=== PATIENT | male | born 1930 | race Caucasian/White ===

== ENCOUNTER 2020-08-05 00:26 | Inpatient (IN) | payer MEDICARE, OTHER ==
[~2020-08-05] VITALS: Ht 182.9 cm; Wt 77.1 kg
[2020-08-05 01:14] LABS: CREATININE 0.8 mg/dL (0.6-1.3); POTASSIUM 4.2 mmol/L (3.5-5.1)
[2020-08-05 01:18] LABS: EOSINOPHILS # (AUTO) 0.1 K/uL (0.0-0.7); EOSINOPHILS % (AUTO) 3.1 % (0.0-7.0); HEMOGLOBIN 14.4 g/dL (12.5-16.3); LYMPHOCYTES # (AUTO) 1.7 K/uL (20.0-40.0); LYMPHOCYTES % (AUTO) 36.5 % (20.5-51.5); MEAN CORPUSCULAR HEMOGLOBIN 31.5 uug (23.8-33.4); MEAN CORPUSCULAR HGB CONC 33 g/dL (32.5-36.3); MEAN CORPUSCULAR VOLUME 94.4 fL (73.0-96.2); MONOCYTES # (AUTO) 0.5 K/uL (2.0-10.0); MONOCYTES % (AUTO) 11.4 % (0.0-11.0); NEUTROPHILS # (AUTO) 2.2 K/uL (1.8-8.9); PLATELET COUNT (AUTO) 174 K/uL (152-348); RED BLOOD CELL COUNT(AUTO) 4.56 MIL/uL (4.06-5.63); WHITE BLOOD COUNT (AUTO) 4.6 K/uL (3.6-10.2)
[2020-08-05 01:20] LABS: BILIRUBIN,DIRECT 0.2 mg/dL (0.0-0.2); BILIRUBIN,TOTAL 0.9 mg/dL (0.2-1.0); TOTAL PROTEIN, SERUM 6.6 g/dL (6.4-8.2)
[2020-08-05] MEDS ORDERED: SWABABLE VALVE TRANSFER SET EA MC ONE (01:53)
[2020-08-05] MEDS ORDERED: IV NORMAL SALINE 250 ML IV ONE (01:53)
[2020-08-05] MEDS ORDERED: IOHEXOL 300MG/ML 100 ML INFUS..BTL ONE (01:53)
[2020-08-05 01:56] LABS: *BILIRUBIN,URIN NEGATIVE (NEGATIVE); *BLOOD, URINE NEGATIVE (NEGATIVE); *CLARITY,URINE CLEAR (CLEAR); *COLOR,URINE YELLOW (YELLOW); *KETONES,URINE NEGATIVE (NEGATIVE); LEUKOCYTE ESTERASE ,URINE NEGATIVE (NEGATIVE); NITRITE, URINE NEGATIVE (NEGATIVE); PH,URINE 6.5 (5.0-8.0); UGLUCOSE NEGATIVE (NEGATIVE)
--- NOTE | 2020-08-05 02:00 | NUR ---
CALLED [facility] , SPOKE TO BO WHO WORKS AT THE FACILITY. INFORMED HER THAT NO MEDICAL HISTORY, H/P AND MEDICATION LIST WAS PROVIDED. BO STATES SHE WOULD FAX INFORMATION. WAITING ON INFORMATION TO BE FAXED.
--- NOTE | 2020-08-05 03:00 | NUR ---
NO FAX RECIEVED FROM [facility]. CALLED BACK BO, BUT UNABLE TO GET A HOLD OF ANY STAFF MEMBER AT THIS TIME TO SPEAK TO.
[2020-08-05] MEDS ORDERED: HYDROMORPHONE 1 MG/1 ML DISP.SYRIN ONE (03:27)
[2020-08-05] MEDS ORDERED: ONDANSETRON 4 MG/2 ML VIAL ONE (03:28)
[2020-08-05] MEDS ORDERED: ONDANSETRON 4 MG/2 ML VIAL IV ONE (03:30)
[2020-08-05] MEDS ORDERED: HYDROMORPHONE 1 MG/1 ML DISP.SYRIN IV ONE (03:30)
--- NOTE | 2020-08-05 03:40 | NUR ---
horacio swab collected and handed to Milagro in lab.
--- NOTE | 2020-08-05 03:59 | NUR ---
Edmar from US at bedside.
--- NOTE | 2020-08-05 04:23 | NUR ---
Jeff sommer, Sanjeev Torres DNP sound controller.
--- NOTE | 2020-08-05 04:26 | NUR ---
Pt. admitted to m/s , under care of Dr. Sanjeev Torres Belongs List completed. covid pending.
--- NOTE | 2020-08-05 06:09 | NUR ---
Report given to MARLYN Garcia.
[2020-08-05] MEDS ORDERED: FURO20TA4 PO (06:43)
[2020-08-05] MEDS ORDERED: AMLO5TAB9 PO (06:43)
[2020-08-05] MEDS ORDERED: DOCU100C36 PO (06:43)
[2020-08-05] MEDS ORDERED: OMEP20TA5 PO (06:43)
[2020-08-05] MEDS ORDERED: POTA8CAP20 PO (06:43)
[2020-08-05] MEDS ORDERED: TAMS-3 PO (06:43)
[2020-08-05] MEDS ORDERED: DONE10TA44 PO (06:43)
[2020-08-05] MEDS ORDERED: METO100T14 PO (06:43)
[2020-08-05] MEDS ORDERED: SERT25TA PO (06:43)
[2020-08-05] MEDS ORDERED: PRAV20TA4 PO (06:43)
[2020-08-05] MEDS ORDERED: ASPI-869 PO (06:43)
--- NOTE | 2020-08-05 06:45 | NUR ---
Pt arrived via gurney from the ED. No s/s of distress noted. Pt on 2L NC, denies SOB and pain. Safety measures in place, bed alarm on. Will endorse to oncoming shift
[2020-08-05 06:51] VITALS: BP 152/61
--- NOTE | 2020-08-05 08:00 | NUR ---
Awake, alert, oriented to self, able to appropriately verbalized needs. Blind both eyes, hard of hearing. Reoriented.
[2020-08-05 08:03] VITALS: BP 148/61
[2020-08-05] MEDS ORDERED: ONDANSETRON 4 MG/2 ML VIAL IV PRN (08:15)
[2020-08-05] MEDS ORDERED: Z GUARD REMEDY PASTE 57 GM TUBE TOP PRN (08:15)
[2020-08-05] MEDS ORDERED: MORPHINE SULFATE 2 MG/1 ML DISP.SYRIN IV PRN (08:15)
[2020-08-05] MEDS: IV NS 1000 ML 1,000 ML IV PRN ×2 (09:12→20:28)
[2020-08-05] MEDS: ENOXAPARIN SODIUM 40 MG/0.4 ML DISP.SYRIN SQ SCH (09:13)
--- NOTE | 2020-08-05 09:15 | NUR ---
IVF started as ordered.
[2020-08-05 11:46] VITALS: BP 135/60
--- NOTE | 2020-08-05 13:00 | NUR ---
Patient pulled out IV/Saline lock; Reinserted to LFA G20. Reoriented. Bed alarm on
[2020-08-05 15:35] VITALS: BP 132/60
--- NOTE | 2020-08-05 18:30 | NUR ---
Covid PCR negative, Transferred to room 308. Diet advanced to soft, tolerated. Free from fall or injury. Bed alarm on
--- NOTE | 2020-08-05 19:30 | NUR ---
RECEIVED PT AWAKE, ALERT AND ORIENTEDX2. PT IN NO ACUTE DISTRESS. IV INTACT. SAFETY AND COMFORT PROVIDED. WILL CONTINUE TO MONITOR.
[2020-08-05 20:08] VITALS: BP 134/60
[2020-08-05] MEDS: ATORVASTATIN 40 MG TABLET PO SCH (20:25)
[2020-08-05] MEDS: ACETAMINOPHEN 325 MG TABLET PO PRN (20:25)
[2020-08-05] MEDS: TAMSULOSIN HCL 0.4 MG CAP.SR.24H PO SCH (20:26)
[2020-08-05] MEDS: METOPROLOL TARTRATE 50 MG TABLET PO SCH (20:26)
--- NOTE | 2020-08-06 01:31 | NUR ---
SHAI ( LAB) CALLED TO NOTIFY THAT PT COVID PCR RESULT IS NEGATIVE.
--- NOTE | 2020-08-06 01:46 | NUR ---
PT GIVEN MORPHINE AT 0115H FOR 8/10 PAIN SCALE ON RIGHT LOWER ABDOMINAL PAIN. PT RIGHT NOW STATED HIS PAIN MUCH BETTER. PT TOLERATED IT WELL. PT IN NO ACUTE DISTRESS. SAFETY PROVIDED. WILL CONTINUE TO MONITOR.
[2020-08-06 04:08] VITALS: BP 152/65
[2020-08-06] MEDS: PANTOPRAZOLE SODIUM 40 MG TABLET.DR PO SCH (06:02)
[2020-08-06 06:36] LABS: BASOPHILS % (AUTO) 0.5 % (0.0-2.0); EOSINOPHILS # (AUTO) 0.2 K/uL (0.0-0.7); EOSINOPHILS % (AUTO) 4.4 % (0.0-7.0); HEMATOCRIT 40.5 % (36.7-47.1); HEMOGLOBIN 13.5 g/dL (12.5-16.3); LYMPHOCYTES # (AUTO) 1.5 K/uL (20.0-40.0); LYMPHOCYTES % (AUTO) 32.9 % (20.5-51.5); MEAN CORPUSCULAR HEMOGLOBIN 31.4 uug (23.8-33.4); MEAN CORPUSCULAR HGB CONC 33 g/dL (32.5-36.3); MEAN CORPUSCULAR VOLUME 94.5 fL (73.0-96.2); MONOCYTES # (AUTO) 0.5 K/uL (2.0-10.0); MONOCYTES % (AUTO) 11.9 % (0.0-11.0); NEUTROPHILS # (AUTO) 2.3 K/uL (1.8-8.9); NEUTROPHILS % (AUTO) 50.3 % (38.5-71.5); PLATELET COUNT (AUTO) 159 K/uL (152-348); RED BLOOD CELL COUNT(AUTO) 4.28 MIL/uL (4.06-5.63); WHITE BLOOD COUNT (AUTO) 4.5 K/uL (3.6-10.2)
[2020-08-06 06:38] LABS: BILIRUBIN,TOTAL 1.2 mg/dL (0.2-1.0); CREATININE 0.7 mg/dL (0.6-1.3); MAGNESIUM 2.2 mg/dL (1.8-2.4); PHOSPHOROUS 3.1 mg/dL (2.5-4.9); POTASSIUM 4.4 mmol/L (3.5-5.1); TOTAL PROTEIN, SERUM 5.6 g/dL (6.4-8.2)
--- NOTE | 2020-08-06 06:44 | NUR ---
PT GIVEN TYLENOL AT 2025H FOR PT STATING HE HAS PAIN. AFTER AN HOUR PT IS MORE CALMER AND SLEPT COMFORTABLY. PT HAVE EPISODES OF FORGETFULNESS AND TRYING TO GET OUT OF BED. PT NEEDS REORIENTATION. MORPHINE GIVEN AT 0115H FOR ABDOMINAL PAIN. PT TOLERATED IT WELL. SAFETY AND COMFORT PROVIDED. ALL NEEDS ARE MET. WILL ENDORSE TO INCOMING NURSE FOR CONTINUITY OF CARE.
--- NOTE | 2020-08-06 06:45 | NUR ---
Patient sleeping and in no acute distress. No s/s of respiratory distress. No s/s of pain or any discomfort at this time. IV is intact. Safety protocols initiated. Call light is within reach.
[2020-08-06] MEDS: IV NS 1000 ML 1,000 ML IV PRN ×2 (07:13→20:06)
[2020-08-06] MEDS: SERTRALINE HCL 50 MG TABLET PO SCH (08:02)
[2020-08-06] MEDS: AMLODIPINE 5 MG TABLET PO SCH (08:02)
[2020-08-06] MEDS: ASPIRIN EC 325 MG TABLET.DR PO SCH (08:02)
[2020-08-06] MEDS: DOCUSATE SODIUM 100 MG CAPSULE PO SCH (08:02)
[2020-08-06] MEDS: METOPROLOL TARTRATE 50 MG TABLET PO SCH ×2 (08:02→20:13)
[2020-08-06] MEDS: DONEPEZIL 10 MG TABLET PO SCH (08:03)
[2020-08-06] MEDS: ENOXAPARIN SODIUM 40 MG/0.4 ML DISP.SYRIN SQ SCH (08:04)
[2020-08-06 11:58] VITALS: BP 100/51
[2020-08-06] MEDS: LACTULOSE 20 G/30 ML LIQUID UDC PO SCH ×3 (12:10→23:27)
[2020-08-06] MEDS: ACETAMINOPHEN 325 MG TABLET PO PRN (14:43)
[2020-08-06 16:00] VITALS: BP 138/67
--- NOTE | 2020-08-06 19:00 | NUR ---
Patient alert with episode of forgetfulness, no sob no chest pain. Patient received seated in reclining chair, Patient was kept clean and dry, cont to monitor.
[2020-08-06 20:04] VITALS: BP 146/45
[2020-08-06] MEDS: TAMSULOSIN HCL 0.4 MG CAP.SR.24H PO SCH (20:05)
[2020-08-06] MEDS: ATORVASTATIN 40 MG TABLET PO SCH (20:05)
[2020-08-07 04:06] VITALS: BP 160/68
--- NOTE | 2020-08-07 04:11 | NUR ---
Patient asleep but arousable, no complain of pain at this time. Patient was kept clean and dry, with episode of incontinence of bladder. Patient has small bowel movement in our shift, Tylenol 650mg po was given for pain and discomfort, cont to monitor.
[2020-08-07] MEDS: LACTULOSE 20 G/30 ML LIQUID UDC PO SCH ×3 (06:06→17:21)
[2020-08-07] MEDS: PANTOPRAZOLE SODIUM 40 MG TABLET.DR PO SCH (06:06)
[2020-08-07 07:24] LABS: BASOPHILS % (AUTO) 0.6 % (0.0-2.0); EOSINOPHILS # (AUTO) 0.2 K/uL (0.0-0.7); EOSINOPHILS % (AUTO) 5.3 % (0.0-7.0); HEMATOCRIT 42.5 % (36.7-47.1); HEMOGLOBIN 14.1 g/dL (12.5-16.3); LYMPHOCYTES # (AUTO) 1.6 K/uL (20.0-40.0); LYMPHOCYTES % (AUTO) 34.1 % (20.5-51.5); MEAN CORPUSCULAR HEMOGLOBIN 31.3 uug (23.8-33.4); MEAN CORPUSCULAR HGB CONC 33 g/dL (32.5-36.3); MEAN CORPUSCULAR VOLUME 94.4 fL (73.0-96.2); MONOCYTES # (AUTO) 0.5 K/uL (2.0-10.0); MONOCYTES % (AUTO) 9.9 % (0.0-11.0); NEUTROPHILS # (AUTO) 2.3 K/uL (1.8-8.9); NEUTROPHILS % (AUTO) 50.1 % (38.5-71.5); PLATELET COUNT (AUTO) 146 K/uL (152-348); WHITE BLOOD COUNT (AUTO) 4.6 K/uL (3.6-10.2)
[2020-08-07 07:27] LABS: CREATININE 0.7 mg/dL (0.6-1.3); MAGNESIUM 2.1 mg/dL (1.8-2.4); PHOSPHOROUS 2.6 mg/dL (2.5-4.9); POTASSIUM 4.1 mmol/L (3.5-5.1)
[2020-08-07] MEDS: SERTRALINE HCL 50 MG TABLET PO SCH (08:03)
[2020-08-07] MEDS: METOPROLOL TARTRATE 50 MG TABLET PO SCH (08:04)
[2020-08-07] MEDS: AMLODIPINE 5 MG TABLET PO SCH (08:04)
[2020-08-07] MEDS: ENOXAPARIN SODIUM 40 MG/0.4 ML DISP.SYRIN SQ SCH (08:04)
[2020-08-07] MEDS: DOCUSATE SODIUM 100 MG CAPSULE PO SCH (08:04)
[2020-08-07] MEDS: DONEPEZIL 10 MG TABLET PO SCH (08:04)
[2020-08-07] MEDS: ASPIRIN EC 325 MG TABLET.DR PO SCH (08:04)
[2020-08-07 11:55] VITALS: BP 108/66
[2020-08-07 16:46] VITALS: BP 117/62
--- NOTE | 2020-08-07 18:47 | NUR ---
dc orders received noted and carried out,dc heplock per md orders.pt left the facility via ambulances in stable condition
== END 2020-08-07 18:50 | DRG 392 ==
LOC: ER 00:40 → UNDOADMIN 06:19 → MEDSURG3 06:19
DX: K59.00 Constipation, unspecified (principal); K80.20 Calculus of gallbladder without cholecystitis without obstruction; N43.3 Hydrocele, unspecified; E78.5 Hyperlipidemia, unspecified; F03.90 Unspecified dementia, unspecified severity, without behavioral disturbance, psychotic disturbance, mood disturbance, and anxiety; I11.0 Hypertensive heart disease with heart failure; I50.9 Heart failure, unspecified; K21.9 Gastro-esophageal reflux disease without esophagitis; N40.0 Benign prostatic hyperplasia without lower urinary tract symptoms
CPT/HCPCS: 36415; 70030-TC; 71045; 76870; 83690; 83735; 84100; 85025; 85730; 93005; A4663; C1758; G0378; J1170; J1650; J2270; J2405; J7030; J7050; Q9967; U0003